=== PATIENT | female | born 1965 | race Caucasian/White ===

== ENCOUNTER 2019-07-27 13:26 | Observation (INO) | payer BC ==
[~2019-07-27] VITALS: Ht 162.6 cm; Wt 83.9 kg
--- OUTSIDE RECORDS SUMMARY | 2019-07-27 13:29 | XMS REPORT ---
Author Author [facility] Address Unknown Phone Unavailable Care Team Providers Care Outside Sales Associate Name Role Phone Unavailable Unavailable Payers Payer Name Policy Type Policy Number Effective Date Expiration Date Problems This patient has no known problems. Allergies, Adverse Reactions, Alerts This patient has no known allergies or adverse reactions. Medications This patient has no known medications.
[2019-07-27] MEDS ORDERED: HYDRALAZINE HCL 20 MG/ML VIAL IV STA (13:54)
[2019-07-27] MEDS ORDERED: ONDANSETRON HCL INJ 2MG/ML 2ML 2 MG/ML VIAL IV STA (13:54)
[2019-07-27] MEDS ORDERED: HYDROCODONE/APAP 5MG-325MG TAB PO ONE (14:00)
[2019-07-27 14:31] LABS: BASOPHILS % 0.3 % (0.0-1.0); EOSINOPHILS # (AUTO) 0.3 (0.0-0.4); EOSINOPHILS % 2.9 % (0.0-6.0); HEMATOCRIT 40.9 % (34.2-44.1); HEMOGLOBIN 13.8 g/dL (12.0-16.0); LYMPHOCYTES # (AUTO) 2.3 (1.0-3.2); LYMPHOCYTES % 21.4 % (18.0-39.1); MEAN CORPUSCULAR HEMOGLOBIN 29.6 pg (28-32); MEAN CORPUSCULAR HGB CONC 33.7 g/dL (31-35); MEAN CORPUSCULAR VOLUME 87.6 fL (81-99); MONOCYTES # (AUTO) 0.7 (0.2-0.8); MONOCYTES % 6.8 % (4.4-11.3); NEUTROPHILS # (AUTO) 7.5 (2.1-6.9); NEUTROPHILS % 68.3 % (38.7-80.0); PLATELET COUNT 292 x10e3/uL (140-360); RED BLOOD COUNT 4.67 x10e6/uL (3.6-5.1); RED CELL DISTRIBUTION WIDTH 11.9 % (11.7-14.4)
--- NOTE | 2019-07-27 14:38 | Diagnostic Imaging Report ---
EXAM: CHEST SINGLE (PORTABLE) DATE: 07/27/2019 1:54 PM INDICATION: Shortness of breath COMPARISON: None FINDINGS: The trachea is midline and the lungs are symmetrically expanded without evidence for focal consolidation, pneumothorax, or significant pleural effusion. The cardiomediastinal silhouette and pulmonary vasculature are within normal limits. No acute osseous abnormalities identified. The surrounding soft tissues are unremarkable. IMPRESSION: No acute cardiopulmonary process identified. Signed by: Dr. Paresh Baum MD on 07/27/2019 2:35 PM
[2019-07-27 14:51] LABS: ALANINE AMINOTRANSFERASE 23 IU/L (0-55); ALBUMIN 4.3 g/dL (3.5-5.0); ALBUMIN/GLOBULIN RATIO 1.2 (0.8-2.0); ALKALINE PHOSPHATASE 81 IU/L (40-150); ANION GAP 17.6 mmol/L (8-16); BLOOD UREA NITROGEN 13 mg/dL (7-26); BUN/CREATININE RATIO 18 (6-25); CARBON DIOXIDE 23 mmol/L (22-29); CHLORIDE 100 mmol/L (98-107); CREATINE KINASE 67 IU/L (29-168); CREATININE, SERUM 0.74 mg/dL (0.57-1.11); EST GLOMERULAR FILTRATION RATE > 60 ML/MIN (60-); GLUCOSE 100 mg/dL (74-118); POTASSIUM 3.6 mmol/L (3.5-5.1); SODIUM 137 mmol/L (136-145)
[2019-07-27 15:01] LABS: BILIRUBIN,URINE NEGATIVE (NEGATIVE); CLARITY,URINE SL CLOUDY (CLEAR); COLOR,URINE YELLOW (YELLOW); KETONES,URINE 1+ (NEGATIVE); LEUKOCYTE ESTERASE ,URINE TRACE (NEGATIVE); NITRITE,URINE NEGATIVE (NEGATIVE); PROTEIN,URINE DIPSTICK NEGATIVE (NEGATIVE); URINE UROBILINOGEN 0.2 mg/dL (0.2 - 1)
--- NOTE | 2019-07-27 15:04 | Diagnostic Imaging Report ---
Exam: Head CT without contrast History: Headache, high blood pressure Comparison studies: None Technique: Axial images were obtained from the skull base to the vertex. Coronal and sagittal images reconstructed from the axial data. Dose modulation, iterative reconstruction, and/or weight based adjustment of the mA/kV was utilized to reduce the radiation dose to as low as reasonably achievable. Radiation dose: Total DLP: 921 mGy*cm. Estimated effective dose: DLP x 0.015 Intravenous contrast: None Findings: Scalp: No abnormalities. Bones: No fractures, blastic or lytic lesions. Brain sulci: Appropriate for age. Ventricles: Normal in size and configuration. No hydrocephalus. Extra-axial spaces: No masses, no fluid collection. Parenchyma: No abnormal densities. No masses, hemorrhage, acute or chronic vascular insults. Sellar/suprasellar region: No abnormalities. Craniocervical junction: Patent foramen magnum. No Chiari one malformation. Incidental findings: Atherosclerotic calcifications in the carotid siphons. IMPRESSION: No acute intracranial abnormalities. Signed by: Dr. Antwan Friedman M.D. on 07/27/2019 3:01 PM
[2019-07-27 15:11] LABS: INR 0.92; PROTHROMBIN TIME 12.8 seconds (11.9-14.5)
[2019-07-27 15:12] LABS: PARTIAL THROMBOPLASTIN TIME 30.9 seconds (23.8-35.5)
[2019-07-27] MEDS ORDERED: HYDRALAZINE HCL 20 MG/ML VIAL IV NR ×2 (15:17→21:45)
[2019-07-27 15:32] LABS: BACTERIA,URINE FEW /HPF; WBC,URINE (MAN) 0-5 /HPF (0-5)
[2019-07-27] MEDS ORDERED: KETOROLAC TROMETHAMINE 30 MG/ML VIAL IV STA (16:11)
[2019-07-27] MEDS ORDERED: DIPHENHYDRAMINE HCL INJ 50 MG/ML VIAL IV ONE (16:15)
[2019-07-27] MEDS ORDERED: SODIUM CHLORIDE 0.9% 500ML 500 ML IV ONE (16:15)
[2019-07-27] MEDS ORDERED: METOCLOPRAMIDE HCL 10 MG/2ML VIAL IV ONE (16:15)
--- NOTE | 2019-07-27 17:52 | NUR ---
DR. CARRERA AT BEDSIDE
[2019-07-27] MEDS ORDERED: HYDRALAZINE HCL 20 MG/ML VIAL IV PRN (18:00)
[2019-07-27] MEDS ORDERED: ONDANSETRON HCL INJ 2MG/ML 2ML 2 MG/ML VIAL IV PRN (18:00)
[2019-07-27] MEDS: MORPHINE SULFATE INJ 4 MG/ML INJ 1ML IV PRN (18:29)
[2019-07-27 19:03] VITALS: BP 119/103
[2019-07-27 19:13] VITALS: BP 119/103
--- NOTE | 2019-07-27 19:18 | Consultation ---
DATE OF CONSULTATION: 07/27/2019 Cardiology Consultation INDICATION: Hypertensive emergency. HISTORY OF PRESENT ILLNESS: Ms. Tolbert is a 53-year-old female with history of hypertension and hyperlipidemia, who recently had headache, sinus congestion as well as markedly elevated blood pressure, comes into the ER complaining of dizziness, lightheadedness as well as feeling weak. Blood pressure was 240/140. She was given 20 mg of intravenous hydralazine. Blood pressure now is 160. She feels a little better. Headache has resolved. The patient denies any chest pain or shortness of breath. She has had previous echocardiograms stemming from fen-phen use and possible tricuspid regurgitation. PAST MEDICAL HISTORY: Listed above. SOCIAL HISTORY: The patient does not smoke. She drinks alcohol on a social basis. 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 MEDICATIONS: Reviewed. REVIEW OF SYSTEMS: Negative except as dictated in the History of Present Illness. FAMILY HISTORY: Significant for coronary artery disease and coronary artery bypass surgery in her father. PHYSICAL EXAMINATION: VITAL SIGNS: Afebrile, heart rate 82, and blood pressure is 186/70. CARDIOVASCULAR: Regular rate and rhythm. S4 gallop. No murmurs. LUNGS: Clear to auscultation bilaterally. ABDOMEN: Soft. Bowel sounds adequately. EXTREMITIES: No edema. 2+ pedal pulses. DIAGNOSTIC DATA: Electrocardiogram shows sinus rhythm. Labs reviewed. Cardiac enzymes are negative. Chest x-ray is normal. ASSESSMENT: 1. Hypertensive emergency. 2. Hyperlipidemia. RECOMMENDATIONS: Intravenous blood pressure control. Telemetry monitoring with initiation of oral olmesartan 40 mg a day for blood pressure. The patient will be observed in the hospital. Neurology consultation for new onset of headaches. MD BRI Lees/NISA /[id number]
[2019-07-27 19:49] VITALS: BP 173/85
--- NOTE | 2019-07-27 19:53 | NUR ---
PT ARRIVED TO UNIT IN WHEELCHAIR. PT IS AAOX3, RR EVEN AND NON-LABORED, ON ROOM AIR. NO S/SX OF DISTRESS NOTED. PT AMBULATED WITH STANDBY ASSIST TO HOSPITAL BED. ORIENTED PT TO HOSPITAL ROOM, CALL LIGHT, PHONE, BED CONTROLS AND LIGHTS. LEFT PT LAYING SEMI FOWLERS IN BED, BED IN LOW LOCKED POSITION, SIDE RAILS UPX2, CALL LIGHT AND PHONE WITHIN REACH.
--- NOTE | 2019-07-27 20:39 | NUR ---
CONSULTATION CALLED TO MD PAYAN. WAS INFORMED OUT TILL FRIDAY WITH FLU. WAS INSTRUCTED TO CALL CONSULTING MD AND DISCUSS POC.
--- NOTE | 2019-07-27 20:42 | NUR ---
SPOKE WITH MD CARRERA CONCERNING CONSULTATION FOR MD PAYAN, SCHUYLER OUT WITH FLU. MD CARRERA JUST WANTS PT TO FOLLOW UP OUTPATIENT WITH MD PAYAN FOR HEADACHE.
[2019-07-27 20:51] VITALS: BP 173/85
--- NOTE | 2019-07-27 21:40 | NUR ---
SPOKE WITH MD CARRERA CONCERNING PT REPORTS OF HEADACHE, TOO SOON FOR MORPHINE AND BP ONLY 172/87 WITH PARAMETERS FOR HYDRALAZINE TO BE ADMIN WHEN BP GREATER THAN 190. NEW ORDERS RECEIVED FOR ONE TIME DOSE OF HYDRAL, TYLENOL, AND IBUPROFEN.
[2019-07-27] MEDS ORDERED: ACETAMINOPHEN 325 MG TAB PO NR (21:45)
[2019-07-27] MEDS ORDERED: IBUPROFEN 400 MG TAB PO NR (21:45)
[2019-07-27 21:59] LABS: CREATINE KINASE MB 1.1 ng/mL (0-5.0)
[2019-07-28] VITALS: BP 125/63
[2019-07-28 04:00] VITALS: BP 151/76
[2019-07-28] MEDS: MORPHINE SULFATE INJ 4 MG/ML INJ 1ML IV PRN (05:29)
[2019-07-28 05:50] LABS: BASOPHILS % 0.3 % (0.0-1.0); EOSINOPHILS # (AUTO) 0.3 (0.0-0.4); HEMATOCRIT 37.7 % (34.2-44.1); HEMOGLOBIN 12.6 g/dL (12.0-16.0); LYMPHOCYTES # (AUTO) 2.4 (1.0-3.2); LYMPHOCYTES % 24.7 % (18.0-39.1); MEAN CORPUSCULAR HEMOGLOBIN 29.9 pg (28-32); MEAN CORPUSCULAR HGB CONC 33.4 g/dL (31-35); MEAN CORPUSCULAR VOLUME 89.5 fL (81-99); MONOCYTES % 9.9 % (4.4-11.3); NEUTROPHILS % 61.8 % (38.7-80.0); PLATELET COUNT 281 x10e3/uL (140-360); RED BLOOD COUNT 4.21 x10e6/uL (3.6-5.1); RED CELL DISTRIBUTION WIDTH 12.1 % (11.7-14.4)
[2019-07-28 06:18] LABS: CREATINE KINASE MB 1.4 ng/mL (0-5.0)
[2019-07-28 06:43] LABS: ALANINE AMINOTRANSFERASE 21 IU/L (0-55); ALBUMIN 3.6 g/dL (3.5-5.0); ALBUMIN/GLOBULIN RATIO 1.1 (0.8-2.0); ALKALINE PHOSPHATASE 66 IU/L (40-150); ANION GAP 14.5 mmol/L (8-16); BLOOD UREA NITROGEN 18 mg/dL (7-26); BUN/CREATININE RATIO 23 (6-25); CALCIUM 9.4 mg/dL (8.4-10.2); CARBON DIOXIDE 23 mmol/L (22-29); CHLORIDE 104 mmol/L (98-107); CHOL/HDL RATIO 2.8 (3.0-3.6); CHOLESTEROL 197 MD/DL (0-199); EST GLOMERULAR FILTRATION RATE > 60 ML/MIN (60-); GLUCOSE 101 mg/dL (74-118); HDL CHOLESTEROL 70 MG/DL (40-60); LDL CHOLESTEROL 113 MG/DL (60-130); POTASSIUM 3.5 mmol/L (3.5-5.1); SODIUM 138 mmol/L (136-145); TRIGLYCERIDES 69 MG/DL (0-149)
[2019-07-28 08:15] VITALS: BP 142/90
[2019-07-28 09:00] VITALS: BP 142/90
[2019-07-28] MEDS ORDERED: LISINOPRIL 10 MG TAB PO SCH (09:00)
[2019-07-28] MEDS ORDERED: OLMESARTAN 20 MG TAB PO SCH (09:00)
--- NOTE | 2019-07-28 09:16 | NUR ---
paged md johns for pt c/o of h/a awaiting for call back
[2019-07-28] MEDS: HYDROCODONE/APAP 5MG-325MG TAB PO PRN ×2 (10:06→17:08)
[2019-07-28 12:45] VITALS: BP 160/85
[2019-07-28 16:35] VITALS: BP 159/92
[2019-07-28] MEDS ORDERED: BENICAR20 MG PO (17:13)
[2019-07-28] MEDS ORDERED: ULTRAM50 MG PO (17:14)
[2019-07-28] MEDS ORDERED: ULTRAM 50MG50 MG PO (17:15)
--- NOTE | 2019-07-28 17:46 | NUR ---
PT OFF UNIT TO HOME
--- NOTE | 2019-07-28 17:46 | NUR ---
DISCHARGE INSTRUCTIONS AND PRESCRIPTIONS GIVEN PT VERBALIZED UNDERSTANDING IV DC PRESSURE DRESSING APPLIED AND TAPED PT IS NOW OFF UNIT
== END 2019-07-28 17:42 | disposition home or self-care (01) ==
LOC: ER 13:26 → ERHOLD 17:51 → MED/SURG 19:50
PROVIDERS: ADMIT Internal Medicine Interventional Cardiology; ATTEND Internal Medicine Interventional Cardiology
DX: I16.1 Hypertensive emergency (principal); I10 Essential (primary) hypertension; E78.5 Hyperlipidemia, unspecified; Z81.1 Family history of alcohol abuse and dependence; Z82.49 Family history of ischemic heart disease and other diseases of the circulatory system
CPT/HCPCS: 36415 ×2; 70450; 71045; 80053 ×2; 80061; 81001; 82550 ×2; 82553 ×2; 83880; 84484 ×2; 85025 ×2; 85610; 85730; 87086; 93005; 99284; G0378 ×2; J0360; J1200; J1885; J2270 ×2; J2405; J2765; J7040

== ENCOUNTER 2019-08-12 19:57 | Observation (INO) | payer BC ==
[~2019-08-12] VITALS: Ht 162.6 cm; Wt 83.9 kg
[~2019-08-12 19:57] MED LIST: BENICAR20 MG PO; ULTRAM 50MG50 MG PO; ULTRAM50 MG PO
[2019-08-12] MEDS ORDERED: SODIUM CHLORIDE 0.9% 1000ML 1,000 ML IV STA ×2 (20:00→20:11)
[2019-08-12 20:21] LABS: BASOPHILS % 0.4 % (0.0-1.0); EOSINOPHILS # (AUTO) 0.4 (0.0-0.4); EOSINOPHILS % 3.4 % (0.0-6.0); HEMATOCRIT 33.9 % (34.2-44.1); HEMOGLOBIN 11.6 g/dL (12.0-16.0); LYMPHOCYTES # (AUTO) 4.4 (1.0-3.2); MEAN CORPUSCULAR HGB CONC 34.2 g/dL (31-35); MEAN CORPUSCULAR VOLUME 87.6 fL (81-99); MONOCYTES # (AUTO) 1.1 (0.2-0.8); MONOCYTES % 9.9 % (4.4-11.3); NEUTROPHILS # (AUTO) 4.8 (2.1-6.9); PLATELET COUNT 273 x10e3/uL (140-360); RED BLOOD COUNT 3.87 x10e6/uL (3.6-5.1); RED CELL DISTRIBUTION WIDTH 11.6 % (11.7-14.4)
[2019-08-12 20:30] LABS: INR 0.92; PROTHROMBIN TIME 12.9 seconds (11.9-14.5)
[2019-08-12 20:31] LABS: PARTIAL THROMBOPLASTIN TIME 26.1 seconds (23.8-35.5)
[2019-08-12 20:41] LABS: ALANINE AMINOTRANSFERASE 21 IU/L (0-55); ALBUMIN 3.7 g/dL (3.5-5.0); ALBUMIN/GLOBULIN RATIO 1.4 (0.8-2.0); ALKALINE PHOSPHATASE 58 IU/L (40-150); ANION GAP 15.8 mmol/L (8-16); BLOOD UREA NITROGEN 12 mg/dL (7-26); BUN/CREATININE RATIO 15 (6-25); CALCIUM 9.6 mg/dL (8.4-10.2); CARBON DIOXIDE 24 mmol/L (22-29); CHLORIDE 100 mmol/L (98-107); CREATINE KINASE 41 IU/L (29-168); CREATININE, SERUM 0.81 mg/dL (0.57-1.11); EST GLOMERULAR FILTRATION RATE > 60 ML/MIN (60-); GLUCOSE 78 mg/dL (74-118); MAGNESIUM 2.1 MG/DL (1.3-2.1); SODIUM 137 mmol/L (136-145)
[2019-08-12 20:44] LABS: POTASSIUM 2.8 mmol/L (3.5-5.1)
[2019-08-12] MEDS ORDERED: POTASSIUM CHLORIDE 20 MEQ TAB CR PO ONE (20:50)
--- NOTE | 2019-08-12 20:50 | Diagnostic Imaging Report ---
EXAM: CHEST SINGLE (PORTABLE) DATE: 08/12/2019 8:00 PM INDICATION: Hypotension ^ERMD ORDER ^[id number] ^2029 ^Y COMPARISON: Chest x-ray, 07/27/2019 FINDINGS: Lines and tubes: None Heart size normal allowing for low lung volumes. No focal pulmonary opacity, pleural effusion or pneumothorax. Upper abdomen unremarkable. No acute bony abnormality. IMPRESSION: No evidence for acute disease. Signed by: Dr. Basil Stewart M.D. on 08/12/2019 8:46 PM
--- NOTE | 2019-08-12 20:54 | Diagnostic Imaging Report ---
EXAMINATION: Head CT without contrast. HISTORY:Syncope, low blood pressure. COMPARISON:CT brain from 07/27/2019. TECHNIQUE: Multidetector axial images were obtained from the foramen magnum to the vertex without contrast. The images were reconstructed using brain and bone algorithms. Thin section brain images were reformatted into coronal and sagittal planes. Dose modulation, iterative reconstruction, and/or weight based adjustment of the mA/kV was utilized to reduce the radiation dose to as low as reasonably achievable. Intravenous contrast: None IMAGE QUALITY: Suboptimal evaluation particularly at the level of skull base and posterior fossa structures due to streak artifacts. FINDINGS: Skull/scalp: No lytic or blastic. lesions. No surgical changes. Parenchyma: Suboptimal evaluation at the level of skull base and posterior fossa due to streak artifacts, despite the limitation no gross acute hemorrhage, mass or acute major vascular territorial infarct. Arteries: No density suggestive of thrombosis. Dural sinuses: No abnormal density suggestive of thrombosis. Ventricles: No hydrocephalus or displacement. Extra-axial spaces: No abnormal density. Brain volume: Normal for age. Craniocervical junction: No mass, Chiari malformation, or basilar invagination. Sella: No mass. Paranasal/mastoid sinuses: Imaged portions unremarkable. IMPRESSION: No acute intracranial abnormality. Signed by: Dr. Keren Cortez M.D. on 08/12/2019 8:51 PM
[2019-08-12] MEDS ORDERED: KCL 20MEQ/.9 SOD CHL 1,000 ML IV ONE ×2 (21:00→21:30)
--- NOTE | 2019-08-12 21:30 | NUR ---
Pt sitting up in bed comfortably. RR even and unlabored. NAD noted. Vitals stable. Pt more alert and awake. Spouse remains at bedside. Will continue to monitor.
[2019-08-12 21:53] LABS: BILIRUBIN,URINE NEGATIVE (NEGATIVE); CLARITY,URINE SL CLOUDY (CLEAR); COLOR,URINE YELLOW (YELLOW); KETONES,URINE NEGATIVE (NEGATIVE); LEUKOCYTE ESTERASE ,URINE TRACE (NEGATIVE); NITRITE,URINE NEGATIVE (NEGATIVE); PROTEIN,URINE DIPSTICK NEGATIVE (NEGATIVE); URINE UROBILINOGEN 0.2 mg/dL (0.2 - 1)
[2019-08-12 21:57] LABS: AMPHETAMINES SCREEN,URINE NEGATIVE (NEGATIVE); BENZODIAZEPINES SCREEN,URINE NEGATIVE (NEGATIVE); PHENCYCLIDINE SCREEN,URINE NEGATIVE (NEGATIVE)
[2019-08-12 22:08] LABS: BACTERIA,URINE MODERATE /HPF; EPITHELIAL CELLS,URINE FEW /LPF
--- NOTE | 2019-08-12 23:35 | NUR ---
Pt ambulating to the restroom with steady gait without assitance.
[2019-08-12] MEDS: CEFTRIAXONE SOD 1 GM/NS 50 ML 50 ML IV SCH (23:53)
--- NOTE | 2019-08-13 00:30 | NUR ---
Bedside shift report given to ALAN Lowry. Pt resting comfortably in bed. RR even and unlabored. NAD noted. Vital stable at this time. Pt denies any pain or discomfort, spouse at bedside.
[2019-08-13] MEDS ORDERED: DIPHENHYDRAMINE HCL 25 MG CAP PO PRN (01:15)
[2019-08-13] MEDS ORDERED: BENADRYL25 M1 PO (01:22)
[2019-08-13] MEDS ORDERED: MELATONIN3 MG PO (01:22)
[2019-08-13] MEDS ORDERED: SIMVASTATIN20 MG PO (01:22)
[2019-08-13] MEDS ORDERED: AMLODIPINE BESYL5 MG PO (01:22)
[2019-08-13] MEDS ORDERED: OLMESARTAN-HCT1 EAC2 PO (01:22)
--- NOTE | 2019-08-13 05:38 | NUR ---
DR. RICHARDSON AT BEDSIDE FOR PT EVAL. NO ACUTE DISTRESS NOTED AT THIS TIME. VITAL SIGNS STABLE.
[2019-08-13 05:45] LABS: BASOPHILS % 0.2 % (0.0-1.0); EOSINOPHILS # (AUTO) 0.2 (0.0-0.4); EOSINOPHILS % 2.5 % (0.0-6.0); HEMATOCRIT 32.9 % (34.2-44.1); HEMOGLOBIN 11.2 g/dL (12.0-16.0); LYMPHOCYTES # (AUTO) 1.9 (1.0-3.2); LYMPHOCYTES % 19.7 % (18.0-39.1); MEAN CORPUSCULAR VOLUME 88.2 fL (81-99); MONOCYTES # (AUTO) 0.8 (0.2-0.8); MONOCYTES % 8.1 % (4.4-11.3); NEUTROPHILS # (AUTO) 6.7 (2.1-6.9); NEUTROPHILS % 69.3 % (38.7-80.0); PLATELET COUNT 249 x10e3/uL (140-360); RED BLOOD COUNT 3.73 x10e6/uL (3.6-5.1); RED CELL DISTRIBUTION WIDTH 11.8 % (11.7-14.4)
[2019-08-13 06:04] LABS: ALANINE AMINOTRANSFERASE 21 IU/L (0-55); ALBUMIN 3.3 g/dL (3.5-5.0); ALBUMIN/GLOBULIN RATIO 1.3 (0.8-2.0); ALKALINE PHOSPHATASE 56 IU/L (40-150); ANION GAP 11.4 mmol/L (8-16); BLOOD UREA NITROGEN 10 mg/dL (7-26); BUN/CREATININE RATIO 15 (6-25); CALCIUM 9.2 mg/dL (8.4-10.2); CARBON DIOXIDE 24 mmol/L (22-29); CHLORIDE 106 mmol/L (98-107); CHOL/HDL RATIO 2.4 (3.0-3.6); CHOLESTEROL 145 MD/DL (0-199); CREATININE, SERUM 0.66 mg/dL (0.57-1.11); EST GLOMERULAR FILTRATION RATE > 60 ML/MIN (60-); GLUCOSE 100 mg/dL (74-118); HDL CHOLESTEROL 61 MG/DL (40-60); LDL CHOLESTEROL 67 MG/DL (60-130); POTASSIUM 4.4 mmol/L (3.5-5.1); SODIUM 137 mmol/L (136-145); TRIGLYCERIDES 87 MG/DL (0-149)
[2019-08-13 06:07] LABS: CREATINE KINASE 40 IU/L (29-168)
--- NOTE | 2019-08-13 06:40 | NUR ---
Miguelina avila in [facility] - 08/13/19 at 0711 by ALTAGRACIA ASSISTED PT TO RESTROOM USING WHEELCHAIR.
--- NOTE | 2019-08-13 07:09 | NUR ---
REPORT GIVEN TO Clare MEEKS RN DAY SHIFT NURSE.
--- NOTE | 2019-08-13 08:27 | NUR ---
AMBULATORY TO RESTROOM
[2019-08-13] MEDS ORDERED: AMLODIPINE BESYLATE 5 MG TAB PO SCH (09:00)
[2019-08-13 09:42] LABS: CREATINE KINASE 37 IU/L (29-168)
[2019-08-13] MEDS: CEFTRIAXONE SOD 1 GM/NS 50 ML 50 ML IV SCH (09:51)
--- NOTE | 2019-08-13 12:33 | History and Physical ---
REASON FOR ADMISSION: Syncope. HISTORY OF PRESENT ILLNESS: The patient is a 53-year-old lady, suffers hypertension, who presented with syncopal episode at a restaurant the day of admission and she was brought in. She was noticed to be hypokalemic with a potassium of 2.8 and therefore she was given volume resuscitation as well as replacement of her potassium, where she currently feels significantly much better. The patient stated that she did have a prodrome of symptoms about 15 seconds, feeling lightheaded and sweaty, but no chest pain or shortness of breath and recovered spontaneously upon being supine. The patient did note that she that day took her very first dose of hydrochlorothiazide medication. PAST MEDICAL HISTORY: Significant for hypertension. MEDICATIONS: See MAR. ALLERGIES: NONE. SOCIAL HISTORY: Lives at home with her . She works. She is a nonsmoker and nondrinker. FAMILY HISTORY: Hypertension. PHYSICAL EXAMINATION: VITAL SIGNS: She is currently 98.6, pulse 80 in normal rhythm, blood pressure 142/88, and sats 98% on room air. GENERAL: She is in no apparent distress, lying in bed. NECK: Supple. No lymphadenopathy. No JVD. CARDIOVASCULAR: Regular rate and rhythm. LUNGS: Clear to auscultation bilaterally. ABDOMEN: Good bowel sounds. Soft and nontender. EXTREMITIES: No clubbing or cyanosis. NEUROLOGIC: Nonfocal. ASSESSMENT AND PLAN: 1. Syncope, most likely secondary to hypotension and hypokalemia, so we will continue to monitor. 2. Hypokalemia. She has been replaced in the emergency room, so we will check another lab this morning. 3. Hypertension. 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 Kate. 4. Anemia. We will continue to monitor. 5. Urinary tract infection. Continue with antibiotic. Await on the cultures. 6. Hyperlipidemia. Continue with her cholesterol medicine. 7. Please see hospital chart for full details. MD JAY Rivera/INSA /[id number]
--- NOTE | 2019-08-13 20:57 | Consultation ---
DATE OF CONSULTATION: 08/13/2019 Cardiology Consult Note INDICATION FOR PROCEDURE: Syncope. CHIEF COMPLAINT: Syncope. HISTORY OF PRESENT ILLNESS: The patient is a 53-year-old female with history of poorly controlled hypertension, who presents from home after experiencing episode of syncope while she was sitting down and eating yesterday. She says she was sitting at her dining table eating dinner, then suddenly she started feeling lightheaded and felt like she was going to pass out. Per the , she did proceed to lose consciousness and was unresponsive for 3 to 4 minute. EMS was called and when they arrived, she was noted to be diaphoretic and pale with blood pressure in the 60 systolic and heart rate around 60 as well. After she regained consciousness, she denies any confusion or postictal state. Denies any chest pain, shortness of breath, or palpitations preceding or after. No previous history of CAD or PR. Her blood pressure regimen was recently changed in the office. She also had a full cardiovascular workup in the office, which was largely negative other than uncontrolled hypertension. Upon arrival to the ER, she was noted to be hypokalemic with a potassium of 2.8 and elevated lactate. Negative troponin. EKG showed normal sinus rhythm. Renal function was normal. Currently, denies any ongoing symptoms. Feels much better. Has not had any episodes of bradycardia or tachycardia on telemetry. REVIEW OF SYSTEMS: As above otherwise negative. PAST MEDICAL HISTORY: Uncontrolled hypertension, hyperlipidemia. PAST SURGICAL HISTORY: Noncontributory. SOCIAL HISTORY: She does not smoke, drink, or abuse drugs. FAMILY HISTORY: No family history of sudden cardiac . OUTPATIENT MEDICATIONS: Reviewed. ALLERGIES: REVIEWED. NO KNOWN DRUG ALLERGIES. OBJECTIVE: VITAL SIGNS: Temperature afebrile, pulse 73, respiratory rate 15, blood pressure 125/76, and saturating 98% on room air. GENERAL: Well-developed, well-nourished female, in no acute distress. CARDIOVASCULAR: Regular rate and rhythm. No murmurs, rubs, or gallops. LUNGS: Clear to auscultation bilaterally. ABDOMEN: Soft, nontender, and nondistended. NEURO AND PSYCH: Alert and oriented to person, place, and time. Normal affect. INPATIENT MEDICATIONS: Reviewed. LABORATORY DATA: Reviewed. Notable for potassium of 2.8, improved to 4.4 with repletion. IMAGING DATA: Reviewed. Chest x-ray and brain CT were negative. ASSESSMENT AND PLAN: 1. Syncope. 2. Uncontrolled hypertension. 3. Severe hypokalemia. PLAN: The patient already had an echo and a carotid Doppler, which were unremarkable in the office this past week. Ruled out for acute PR or any arrhythmias so far. Potassium has been repleted and she feels much better. We will stop her hydrochlorothiazide component of Benicar, which was started recently and likely the culprit for her hypokalemia and resulting syncope. The patient can go back to her previous dose of Benicar. Currently, the blood pressure is 125 systolic over 76 diastolic without any medications. I told the patient to hold off blood pressure medications for a day or so until blood pressure starts increasing again and only take blood pressure medicine if she is hypertensive. Avoid diuretics. Stay well hydrated and await any stressors. The patient will follow up in clinic next week with Dr. Kate. Thank you for this consult. The patient is okay to be discharged from cardiovascular standpoint. MD REID Frances/NISA /[id number]
[2019-08-13] MEDS ORDERED: SIMVASTATIN 20 MG TAB PO SCH (21:00)
[2019-08-13] MEDS ORDERED: MELATONIN 5 MG TABLET PO SCH (21:00)
[2019-08-13] MEDS ORDERED: MONTELUKAST SODIUM 10 MG TAB PO SCH (21:00)
--- NOTE | 2019-08-14 06:58 | Discharge Summary ---
DISCHARGE DIAGNOSES: 1. Syncope. 2. Hypokalemia. 3. Hypertension. HISTORY OF PRESENT ILLNESS: The patient is a young lady, who has a history of hypertension, who had some medication adjustments prior to her admission, where she was added with a diuretic that unfortunately caused her potassium to get depleted. While she was at a restaurant, she had a syncopal episode. She was brought into the emergency room, where she appeared to be dehydrated with low potassium. This was replaced. She was given IV fluids with complete resolution of her symptoms. Once she was cleared by Cardiology, she was able to be discharged home in good condition to follow up with me in 1 to 2 weeks as well with Dr. Kate. Please see hospital chart for full details. MD JAY Rivera/NISA /[id number]
== END 2019-08-13 14:36 | disposition home or self-care (01) ==
LOC: ER 19:57 → ERHOLD 21:28
PROVIDERS: ADMIT Internal Medicine; ATTEND Internal Medicine
DX: E87.6 Hypokalemia (principal); I95.9 Hypotension, unspecified; I10 Essential (primary) hypertension; N39.0 Urinary tract infection, site not specified; E78.5 Hyperlipidemia, unspecified; D64.9 Anemia, unspecified
CPT/HCPCS: 36415 ×2; 70450; 71045; 80053 ×2; 80061; 80307; 80320; 81001; 82550 ×2; 82553 ×2; 82948; 83605; 83735; 84484 ×2; 84702; 85025 ×2; 85610; 85730; 87040; 87086; 93005; 99284; G0378 ×2; J0696

== ENCOUNTER 2021-04-27 13:35 | Emergency (ER) | payer BC ==
[~2021-04-27] VITALS: Ht 152.4 cm; Wt 82.6 kg
[~2021-04-27 13:35] MED LIST changes: +AMLODIPINE BESYL5 MG PO; +BENADRYL25 M1 PO; +MELATONIN3 MG PO; +OLMESARTAN-HCT1 EAC2 PO; +SIMVASTATIN20 MG PO
[2021-04-27] MEDS ORDERED: CASIRIVIMAB/IMDEVIMAB 10 ML in SODIUM CHLORIDE 0.9% 100 ML IV ONE (14:00)
== END 2021-04-27 17:10 | disposition home or self-care (01) ==
LOC: ER 13:57
DX: R05 Cough (principal); U07.1 COVID-19; I10 Essential (primary) hypertension; E78.00 Pure hypercholesterolemia, unspecified
CPT/HCPCS: 99282